=== PATIENT | female | born 1980 | race Caucasian/White ===

== ENCOUNTER → 2020-10-11 | Outpatient (CLI) | payer OTHER ==
--- NOTE | 2020-10-11 08:25 | RAD ---
EXAM: Right wrist, 3 views. HISTORY: Fall. Pain. COMPARISON: None. FINDINGS: 3 views of the right wrist are obtained. There is no fracture, dislocation or subluxation. IMPRESSION: No acute osseous finding. Electronically signed by: Nicolette Sorenson MD (10/11/2020 8:22 AM) [id number]
== END ==
LOC: RAD 08:04
PROVIDERS: ATTEND Nurse Practitioner Family
DX: M25.531 Pain in right wrist (principal)
CPT/HCPCS: 73110